=== PATIENT | male | born 1995 | race Caucasian/White ===

== ENCOUNTER → 2017-02-09 | Outpatient (CLI) | payer OTHER ==
[~2017-02-09] MED LIST: CLARITIN10 MG PO; MOTRIN800 MG PO
--- NOTE | ~2017-02-09 | PF ---
[place], [place] PULMONARY FUNCTION TEST NAME: JOHANN STANFORD UNIT #: [id number] ROOM: DOCTOR: NICOLLE RICHARDSON MD,VIRGIL BIRTHDATE: [birth year] DOS: 02/09/2017 PULMONARY FUNCTION TEST TEST WAS ORDERED BY: Odin De Los Santos. The testing was done for assessment of bronchial asthma. The patient noted ongoing symptoms of productive cough. Past tobacco use was noted as a third of pack of cigarettes per day for 1 year. SPIROMETRY: The FVC was recorded at 6.37 liters at 107% predicted value normal without significant post-bronchodilator change. The FEV1 was recorded as 4.85 liters, 98% predicted value normal without significant post-bronchodilator change as well. The flow volume loop was noted as mild reversible obstructive airway pattern. The patient's lung volumes, thoracic gas volume recorded 137%, residual volume 172%, total lung capacity of 122%. RV/TLC ratio 147%. The patient's lung diffusion recorded 116% normal. The patient's airway resistance and passive conductance were noted abnormal, partial improvement postbronchodilator test. 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 VIRGIL VALVERDE MD CM:PFREPORT:PULMONARY FUNCTION TEST [id number] VIRGIL RICHARDSON MD
== END | disposition home or self-care (01) ==
LOC: CP 15:01
DX: J45.909 Unspecified asthma, uncomplicated (principal)